=== PATIENT | female | born 1930 | race Caucasian/White ===

== ENCOUNTER 2017-09-23 17:20 | Emergency (ER) | payer OTHER ==
[~2017-09-23] VITALS: Ht 157.5 cm; Wt 56.8 kg
[~2017-09-23 17:20] MED LIST: ARIMIDEX1 MG PO; CALCIUM500 M4 PO; KEFLEX500 MG PO; MULTI VITAMIN1 EACH PO
[2017-09-23] MEDS ORDERED: ROXICODONE5 MG PO (21:52)
[2017-09-23 22:23] VITALS: BP 131/60
== END 2017-09-23 22:27 | disposition home or self-care (01) ==
LOC: EME 17:20
DX: G89.29 Other chronic pain (principal); M54.2 Cervicalgia; M25.511 Pain in right shoulder; M79.601 Pain in right arm; Z85.3 Personal history of malignant neoplasm of breast; Z92.21 Personal history of antineoplastic chemotherapy; Z92.3 Personal history of irradiation; R21 Rash and other nonspecific skin eruption; R51 Headache; Z87.891 Personal history of nicotine dependence
CPT/HCPCS: 70450; 72125; 99281; 99284